=== PATIENT | male | born 1990 | race African-American/Black ===

== ENCOUNTER 2016-12-09 14:10 | Emergency (ER) | payer SELFPAY ==
--- NOTE | 2016-12-09 14:39 | ED Physician Documentation ---
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 pt recently on z pack for sinusitis-mow n/e/d/ for past several hrs. hx prev orthostatic syncope 1 yr ago-reportedly benign-no cardiac hx. Witnessed: Yes Witnessed By: bystander Position at Time of Episode: standing Symptoms Prior to Episode: light-headed, visual disturbance Character of Events(s): became unresponsive. denies: focal seizure, generalized seizure Symptoms after Event: denies: confused after event, incontinent of urine, incontinent of stool Location of Injury: none Associated Symptoms: light-headedness, dizziness - ROS CONST: recent illness (sinusitis) GI/: diarrhea, other (n/e) MS/SKIN/LYMPH: denies: joint pain, leg swelling, rash, swollen glands, ankle swelling NEURO/PSYCH: denies: confusion, anxiety, depression - PAST HX Cardiac Disease: none PE Risk Factors: none Surgeries/Procedures: none Allergies/Adverse Reactions: Allergies Allergy/AdvReac Type Severity Reaction Status Date / Time No Known Allergies Allergy Verified 12/09/16 14:33 - SOCIAL HX Smoking History: non-smoker Alcohol Use: none Drug Use: none - FAMILY HX Family History: denies: sudden cardiac (f-l-w m-l-w) - VITAL SIGNS Vital Signs: Vital Signs Temp Pulse Resp BP Pulse Ox 97.9 F 58 L 14 128/90 98 12/09/16 14:23 12/09/16 14:23 12/09/16 14:23 12/09/16 14:23 12/09/16 14:23 - REVIEWED ASSESSMENTS Nursing Assessment Reviewed: Yes Vitals Reviewed: Yes ED Results Lab/Radiology - Lab Results Lab Results: Lab Results 12/09/16 12/09/16 12/09/16 14:45 14:40 14:40 WBC 6.00 K/ul K/ul (4.00-12.00) RBC 4.82 M/ul M/ul (3.90-5.20) Hgb 14.4 g/dL g/dL (12.0-18.0) Hct 44.4 % % (37.0-53.0) MCV 92.2 fl fl (80.0-100.0) MCH 29.8 pg pg (28.0-34.0) MCHC 32.3 g/dL g/dL (30.0-36.0) RDW 12.0 % % (11.3-14.3) Plt Count 185 K/mm3 K/mm3 (130-400) Neut % (Auto) 59.3 % % (39.0-79.0) Lymph % (Auto) 27.5 % % (16.0-50.0) Dawson % (Auto) 4.6 % % (0.0-11.0) Eos % (Auto) 5.5 % % (0.0-6.8) Baso % (Auto) 0.7 (0.0-1.5) Neut # 3.6 # k/uL # k/uL (1.4-7.7) Lymph # 1.7 # k/uL # k/uL (0.6-4.0) Dawson # 0.3 # k/uL # k/uL (0.0-0.9) Eos # 0.3 # k/uL # k/uL (0.0-0.6) Baso # 0.0 # k/uL # k/uL (0.0-0.5) Reactive Lymphs % 2.3 % % (0.0-5.0) Reactive Lymphs # 0.1 # k/uL # k/uL (0.0-0.8) Sodium 137 mmol/L mmol/L (136-145) Potassium 3.9 mmol/L mmol/L (3.5-5.0) Chloride 109 mmol/L mmol/L (98-110) Carbon Dioxide 34 mmol/L H mmol/L (20-32) BUN 12 mg/dL mg/dL (10-26) Creatinine 0.9 mg/dL mg/dL (0.4-1.5) Estimated Creat Clear 141 Est GFR ( Amer) > 60 (60 - ) Est GFR (Non-Af Amer) > 60 (60 - ) Glucose 105 mg/dL H mg/dL (70-99) Calcium 9.5 mg/dL mg/dL (8.5-10.5) Total Bilirubin 1.0 mg/dL mg/dL (0.2-1.2) AST 38 U/L U/L (0-41) ALT 29 U/L U/L (0-45) Alkaline Phosphatase 42 U/L L U/L (46-116) Total Protein 6.9 g/dL g/dL (6.0-8.5) Albumin 4.1 g/dL g/dL (3.0-5.5) Urine Color Yellow (YELLOW) Urine Appearance Clear (CLEAR) Urine pH 7.0 (5.0 - 8.0) Ur Specific [place] 1.010 (1.010-1.030) Urine Protein Negative mg/dL mg/dL (NEGATIVE) Urine Ketones Negative mg/dL mg/dL (NEGATIVE) Urine Occult Blood Negative (NEGATIVE) Urine Nitrite Negative (NEGATIVE) Urine Bilirubin Negative (NEGATIVE) Urine Urobilinogen 0.2 Eu Eu (0.2-1.0) Ur Leukocyte Esterase Negative (NEGATIVE) Urine Glucose Negative mg/dL mg/dL (NEGATIVE) - Orders Orders: ED Orders Category Date Time Status Place Saline Lock/IV Now Care 12/09/16 14:32 Active CBC/PLATELET/DIFF Routine Lab 12/09/16 14:40 Completed CMP Routine Lab 12/09/16 14:40 Completed URINALYSIS Routine Lab 12/09/16 14:45 Completed 0.9 % Sodium Chloride [Normal Saline] 1,000 ml Med 12/09/16 15:00 Ordered IV Q1 0.9 % Sodium Chloride [Normal Saline] 1,000 ml Med 12/09/16 15:17 Discontinued IV Q1H EKG WITH COMPARISON Stat Ther 12/09/16 Ordered Syncope Physical Exam - Physical Exam General Appearance: mild distress, lethargic. No: anxious EENT: nml eye inspection Neck/Back: neck supple, non-tender. No: cerv. lymphadenopathy Respiratory: no resp distress, chest non-tender, breath sounds normal CVS: reg rate & rhythm, bradycardia Abdomen: non-tender Skin: warm/dry, normal color. No: cyanosis, diaphoresis, jaundice Extremities: non-tender, normal range of motion, no evidence of injury, no edema - Neuro/Psych Higher Functions: alert, oriented x3 Sensorimotor: nml motor response, nml sensory response Discharge Clincal Impression: influenza dehydration, Orthostatic syncope Comments: home rest ORT f/u w/pcp as indicated or rt ed Condition: Good Disposition: 01 HOME, SELF-CARE Decision to Admit: NO Decision Time: 16:52
[2016-12-09 14:44] LABS: BASOPHILS % 0.7 (0.0-1.5); EOSINOPHILS % 5.5 % (0.0-6.8); LYMPHOCYTES # 1.7 # k/uL (0.6-4.0); MEAN CORPUSCULAR HEMOGLOBIN 29.8 pg (28.0-34.0); MONOCYTES # 0.3 # k/uL (0.0-0.9); MONOCYTES % 4.6 % (0.0-11.0); NEUTROPHILS # 3.6 # k/uL (1.4-7.7)
[2016-12-09] MEDS ORDERED: 0.9 % SODIUM CHLORIDE 1,000 ML IV SCH (15:00)
[2016-12-09 15:10] LABS: eGFR (African) > 60; eGFR (Non-African) > 60
[2016-12-09 15:11] LABS: APPEARANCE,URINE Clear (CLEAR); COLOR,URINE Yellow (YELLOW); OCCULT BLOOD,URINE Negative (NEGATIVE); UROBILINOGEN URINE 0.2 Eu (0.2-1.0)
[2016-12-09] MEDS ORDERED: 0.9 % SODIUM CHLORIDE 1,000 ML IV ONE (15:17)
[2016-12-09 17:03] VITALS: BP 134/70
== END 2016-12-09 16:59 | disposition home or self-care (01) ==
LOC: ED 14:10
DX: J11.1 Influenza due to unidentified influenza virus with other respiratory manifestations (principal); E86.0 Dehydration; R42 Dizziness and giddiness
CPT/HCPCS: 80053; 81002; 85025; 93005; J7030; 96360; 96361; 99283; 99284